=== PATIENT | male | born 1965 | race Asian ===

== ENCOUNTER 2019-12-18 10:26 | Day surgery (SDC) | payer OTHER ==
[~2019-12-18] VITALS: Ht 30.5 cm; Wt 0.5 kg
== END 2019-12-18 12:20 | disposition home or self-care (01) ==
LOC: OR 10:26
PROC: 3E0T3BZ Introduction of Anesthetic Agent into Peripheral Nerves and Plexi, Percutaneous Approach (ICD-10-PCS; principal; 2019-12-18)
PROC: 3E0T33Z Introduction of Anti-inflammatory into Peripheral Nerves and Plexi, Percutaneous Approach (ICD-10-PCS; 2019-12-18)
DX: M47.817 Spondylosis without myelopathy or radiculopathy, lumbosacral region (principal)
CPT/HCPCS: J1100; J2001

== ENCOUNTER 2020-02-17 08:01 | Day surgery (SDC) | payer OTHER ==
[~2020-02-17] VITALS: Ht 30.5 cm; Wt 0.5 kg
== END 2020-02-17 09:39 | disposition home or self-care (01) ==
LOC: OR 08:01
PROC: 3E0T3BZ Introduction of Anesthetic Agent into Peripheral Nerves and Plexi, Percutaneous Approach (ICD-10-PCS; principal; 2020-02-17)
PROC: 3E0T33Z Introduction of Anti-inflammatory into Peripheral Nerves and Plexi, Percutaneous Approach (ICD-10-PCS; 2020-02-17)
DX: M47.817 Spondylosis without myelopathy or radiculopathy, lumbosacral region (principal)
CPT/HCPCS: J1100; J2001

== ENCOUNTER 2020-03-23 07:11 | Day surgery (SDC) | payer OTHER ==
[~2020-03-23] VITALS: Ht 30.5 cm; Wt 0.5 kg
== END 2020-03-23 08:56 | disposition home or self-care (01) ==
LOC: OR 07:11
PROC: 3E0T3TZ Introduction of Destructive Agent into Peripheral Nerves and Plexi, Percutaneous Approach (ICD-10-PCS; principal; 2020-03-23)
PROC: BR16YZZ Fluoroscopy of Lumbar Facet Joint(s) using Other Contrast (ICD-10-PCS; 2020-03-23)
DX: M47.817 Spondylosis without myelopathy or radiculopathy, lumbosacral region (principal)
CPT/HCPCS: J2001